=== PATIENT | male | born 1955 | race Caucasian/White ===

== ENCOUNTER → 2021-09-09 | Outpatient (CLI) | payer OTHER ==
[~2021-09-09] MED LIST: AMLODIPINE-BEN1 EAC2 PO; ASA81BEC PO; CIALIS5 MG PO; CLARITIN10 MG PO; CULTURELLE1 EACH PO; IBUPROFEN 800800 M1 PO; LIPITOR 40 MG T40 M1 PO; MEN'S MULTIVIT1 EACH PO; NEURIVA DE-STR1 EACH PO; OMEPRAZOLE 20 M20 M1 PO; VITAMIN D325 MC2 PO; [UNRECOGNIZED DRUG - OTHER]; [UNRECOGNIZED DRUG - OTHER]
--- NOTE | 2021-09-09 09:30 | EKG ---
[facility] [place] [address] ELECTROCARDIOGRAM REPORT Name: ANJANA GUAJARDO Room #: REG DEV Londono#: [id number] Admission: 09/09/21 Attend Phys: Cristina Hogan DO Discharge: Date of : 59 Report #: [id number] [facility] Test Date: 2021-09-09 Test Time: 09:20:16 Pat Name: ANJANA GUAJARDO Department: Room: Gender: M Claim Technician: VIRGINIE BURTON : 1955 Requested By: Nacho Werner Order Number: [id number] MD: Jason Robles Measurements Intervals [place] Rate: 67 P: 53 OK: 162 QRS: -9 QRSD: 107 T: 6 QT: 365 QTc: 386 Interpretive Statements Sinus rhythm Baseline wander in lead(s) V3 No previous ECG available for comparison Electronically Signed On 09-09-2021 9:30:03 ERP SPECIALIST by Jason Robles [email or web address] <ELECTRONICALLY SIGNED> By: Jason Robles MD, [facility] 09/09/2130 9 9 Jason Robles MD, FACC /EPI
[2021-09-09 09:38] LABS: HEMATOCRIT 37.4 % (42.0-52.0); MCHC 34.9 g/dL (28.0-37.0); RBC 4.2 mil/uL (4.50-6.00); RDW 13.7 % (10.5-14.5); WBC 5.4 thou/uL (4.0-11.0)
[2021-09-09 09:41] LABS: URINE BILIRUBIN NEGATIVE (Negative); URINE BLOOD NEGATIVE (Negative); URINE CLARITY CLEAR; URINE COLOR YELLOW; URINE GLUCOSE-RANDOM* NEGATIVE (Negative); URINE KETONES NEGATIVE (Negative); URINE LEUKOCYTES-REFLEX NEGATIVE (Negative); URINE NITRITE-REFLEX NEGATIVE (Negative); URINE PROTEIN (DIPSTICK) NEGATIVE (Negative); URINE UROBILINOGEN 0.2 E.U./dl (0.2-1.0)
[2021-09-09 09:49] LABS: ALBUMIN 3.8 g/dL (3.4-5.0); CALCIUM 9.1 mg/dL (8.5-10.1); CREATININE 0.8 mg/dL (0.7-1.3); POTASSIUM 4.3 mmol/L (3.5-5.1)
[2021-09-09 09:54] LABS: PROTIME 10.8 Seconds (9.3-11.4)
== END ==
LOC: PAC 08:30
PROVIDERS: Orthopaedic Surgery; ATTEND Student in an Organized Health Care Education/Training Program
DX: Z01.812 Encounter for preprocedural laboratory examination (principal); Z01.810 Encounter for preprocedural cardiovascular examination; M13.861 Other specified arthritis, right knee

== ENCOUNTER 2021-10-11 09:06 | Observation (INO) | payer OTHER ==
[~2021-10-11] VITALS: Ht 193 cm; Wt 99.8 kg
[2021-10-11 10:54] VITALS: BP 124/85
[2021-10-11 19:40] VITALS: BP 128/80
[2021-10-11 19:55] VITALS: BP 133/77
[2021-10-11 21:40] VITALS: BP 140/92
[2021-10-11 23:48] VITALS: BP 122/72
[2021-10-12 03:56] VITALS: BP 133/84
--- NOTE | 2021-10-12 05:24 | NUR ---
PT ARRIVED ON THE UNIT IN A BED AROUND 192. PT IS ALERT AND ORIENTED X4. PT HAS TOVA DRSG AND POLAR CARE ON RIGHT KNEE WHICH IS INTACT. PT DID ABOUT THREE LAPS ON THE UNIT WITH GB AND WALKER. PT C/O PAIN WHICH WAS MANAGED BY PRN MEDS. PT IS ON RA. NO OTHER COCNERNS WAS VERBALIZED. WILL CONTINUE TO MONITOR.
[2021-10-12 08:02] VITALS: BP 145/84
[2021-10-12 10:43] VITALS: BP 145/84
--- NOTE | 2021-10-12 12:07 | NUR ---
ASSUMED CARE OF PATIENT THIS AM. COMPLAINING OF PAIN DURING ASSESMENT. PATIENT WAS STEADY WITH STANDBY ASSIST TO THE BATHROOM. MORNING MEDICATIONS WERE ADMINISTRATED AND PRN PAIN MEDICATION WELL. PATIENT PARITICPATED WITH PT AND OT AND CLEARED. DISCHARGING AT [id number].
== END 2021-10-12 14:13 | disposition home or self-care (01) ==
LOC: OR → 4S 20:01 → OR 20:02 → 4S 20:02
PROVIDERS: ADMIT Orthopaedic Surgery; ATTEND Orthopaedic Surgery
DX: M17.11 Unilateral primary osteoarthritis, right knee (principal); Z79.899 Other long term (current) drug therapy; Z20.822 Contact with and (suspected) exposure to COVID-19
CPT/HCPCS: 10102; 50010; 50101; 50415; 50954; 51130; 51225; 53000; 53078; 53365; 56524; 56527; 56528; 57095; 57103; 57110; 57180; 58637; 58847; 59024; 62110; 62900; 70005